=== PATIENT | female | born 1960 | race Caucasian/White ===

== ENCOUNTER 2020-06-02 15:26 | Emergency (ER) | payer BC, SELFPAY ==
[2020-06-02 15:27] VITALS: BP 149/80; PULSE 76; RESP 18; TEMP 36; O2SAT 98; BMI 23.9
--- NOTE | 2020-06-02 15:49 | ED.VIS.GEN ---
History of Present Illness Chief Complaint: Eye Problem Informant: Patient Onset: Today Current Severity: Mild Maximum Severity: Mild Narrative: Patient presents with burning sensation to the left eye. Yesterday she soaked diluted bleach in her contact lens cases to clean them. Last evening when she put her contacts in them she forgot to remove the solution. Her contacts soaked in a dilute bleach solution all night. When she got this morning she put her right contact in and had some slight burning. She took it out and cleaned it well, was able to put it back in her eye without difficulty. The left contact she has cleaned multiple times today but continues to have burning in her left eye. She was seen at urgent care. They applied tetracaine to her eye which did help relieve her pain but advised her to come here for further evaluation. - Past Medical History (1) High cholesterol Status: Chronic (2) Hypothyroid Status: Chronic Past Medical History - Allergies and Home Meds Allergies/Adverse Reactions: Allergies No Known Allergies Allergy (Verified 06/02/20 15:30) Prior records reviewed: Yes Smoking Status: Never smoker Review of Systems General: Denies: Chills, Fever Eyes: Reports: - - Burning sensation left eye ENT: Denies: Bilateral ear pain, Rhinorrhea Cardiovascular: Denies: Chest pain Respiratory: Denies: Dyspnea, Cough Gastrointestinal: Denies: Abdominal pain, Nausea, Vomiting, Diarrhea Genitourinary: Denies: Dysuria Musculoskeletal: Denies: Extremity Pain Hematologic: Denies: Easy bruising, Easy bleeding Allergy: Denies: Uticaria Physical Exam Vital Signs/Narrative: Vital Signs Temp Pulse Resp BP Pulse Ox 06/02/20 15:27 96.8 F L 76 18 149/80 H 98 Inital Vital Signs reviewed: Yes General: Well nourished, Well developed Head: Normocephalic Eyes: Perrl, EOMI, - - Mild conjunctival injection left eye Neck: Supple Cardiovascular: Regular rate, Regular rhythm Respiratory: No distress Extremities: Nontender Skin: Normal color Neurological: Alert, Oriented x3 Psychological: Normal affect Diagnostic/Tx/Re-eval - Medical Decision Making Tetracaine drops were applied to the left eye. Eye-Stream solution was used to irrigate the eye. Following this fluorescein was applied to the left eye. She has a very mild diffuse uptake. I will give the patient erythromycin eyedrops. If she continues to have pain early next week she will follow-up with her eye doctor. She was advised not to wear contacts until the surface of her eye has completely healed. ED Disposition - Plan for ED Patient: Disposition: Home or Assisted Living Diagnosis: Corneal abrasion Instructions: ED Corneal Injury, Contact Lens Additional Instructions: Apply 2 drops Erythromycin to affected eye 3 times daily until pain resolved x 24 hours.
[2020-06-02] MEDS: Tetracaine 0.5% Ophthalmic Bottle 1 DRP LEFT EYE (15:52)
[2020-06-02] MEDS: Sodium/Calcium/Mag/Potassium 15 ML Bottle LEFT EYE (15:53)
[2020-06-02] MEDS: Erythromycin Base 1 OPTH.TUBE 1 APPLIC LEFT EYE (16:07)
[2020-06-02] MEDS: Fluorescein 1 MG STRIP 1 STRIP LEFT EYE (16:07)
== END 2020-06-02 16:20 | disposition home or self-care (01) ==
LOC: ED 16:06
PROVIDERS: Emergency Provider Emergency Medicine; PCP Family Medicine
DX: S05.02XA Injury of conjunctiva and corneal abrasion without foreign body, left eye, initial encounter (principal); E03.9 Hypothyroidism, unspecified; Z79.899 Other long term (current) drug therapy; X58.XXXA Exposure to other specified factors, initial encounter; Y93.89 Activity, other specified; Y92.89 Other specified places as the place of occurrence of the external cause; Y99.8 Other external cause status
CPT/HCPCS: 99282

== ENCOUNTER → 2022-07-24 | Outpatient (CLI) | payer BC, SELFPAY ==
--- NOTE | 2022-07-24 08:54 | EKG12_ITS ---
Test Reason : PRE OP Blood Pressure : / mmHG Vent. Rate : 060 BPM Atrial Rate : 060 BPM P-R Int : 170 ms QRS Dur : 062 ms QT Int : 396 ms P-R-T Axes : 070 040 078 degrees QTc Int : 396 ms Normal sinus rhythm Nonspecific ST and T wave abnormality Abnormal ECG Confirmed by MARTÍN LEDEZMA, VINICIUS ([id number]), society editor SHANE PACHECO ([id number]) on 07/28/2022 2:21:15 PM Referred By: Abhijit Akhtar Confirmed By:EARL RESENDIZ MD
[2022-07-24 09:36] LABS: Absolute Lymphocyte Count 2.73 X10^3/uL (0.83-4.51); Absolute Neutrophil Count 4.1 X10^3/uL (2.0-7.7); Basophil# 0.08 X10^3/uL; Eosinophil# 0.24 X10^3/uL; Eosinophils% 3.1 % (0-5); Hematocrit 40.3 % (37-47); Hemoglobin 13.5 g/dL (12.0-15.0); Lymphocyte # 2.73 X10^3/ul (0.83-4.51); Lymphocyte % 35.4 % (19-41); Mean Corp Hgb Conc 33.5 g/dL (32-36); Mean Corpuscular Hgb 30.1 pg (27.0-32.0); Mean Platelet Vol. 10.1 fl (6.2-12.0); Monocyte# 0.55 X10^3/uL; Monocyte% 7.1 % (0-10); NRBC Flagged by Analyzer 0 % (0-5); Neutrophil # 4.09 X10^3/uL (2.7-7.7); Neutrophil % 53.1 % (47-70); Platelet Count 277 K/mm3 (150-450); RBC Distribution Width CV 12.6 % (11.6-14.6); RBC Distribution Width SD 41.1 fl (35.1-43.9); Red Blood Count 4.48 M/mm3 (4.2-5.4); White Blood Count 7.7 K/mm3 (4.4-11.0)
[2022-07-24 10:02] LABS: Albumin, Serum 3.9 g/dL (3.2-5.0); Anion Gap 10 (5-15); BUN 15 mg/dL (7-18); Calcium,Total 9.6 mg/dL (8.5-10.1); Chloride 96 mmol/L (98-107); Creatinine, Serum 0.68 mg/dL (0.55-1.02); EST Glomerular Filtration Rate 92 mL/min (>60); Est Glom Filt Rate - Afr Amer 112 mL/min (>60); Glucose 93 mg/dL (74-106); Sodium Level 132 mmol/L (136-145)
== END | disposition home or self-care (01) ==
PROVIDERS: PCP Family Medicine; Referring Provider Specialist; Visit Provider Specialist
DX: Z01.818 Encounter for other preprocedural examination (principal); M16.12 Unilateral primary osteoarthritis, left hip; Z01.810 Encounter for preprocedural cardiovascular examination
CPT/HCPCS: 36415; 80048; 82040; 85025; 93005

== ENCOUNTER 2023-12-08 15:27 | Emergency (ER) | payer MEDICARE, OTHER, SELFPAY ==
[2023-12-08 15:28] VITALS: BP 167/86; PULSE 66; RESP 20; TEMP 36; O2SAT 96; BMI 23.6
--- NOTE | 2023-12-08 16:30 | EDS_ITS ---
HPI History of Present Illness Chief Complaint: Palpitations Informant: patient Onset/Context/Timing Onset: Month(s) (1) Context: Sudden Onset Timing: Intermittent Quality: Skipping Location: Chest Worsened by: Sitting and eating Relieved by: Exercise and movement Narrative Narrative: Patient presents with palpitations that have been intermittent over the last month. Patient states she feels her heart skipping. Patient states it usually comes on in the afternoon and last most of the evening. Patient states it is worse with sitting and with eating. Patient states it is better when she is up and active and moving. Patient denies any chest pain. Patient denies any shortness of breath or cough. Patient denies any nausea or vomiting. Patient denies any recent cough or cold medicine use. Patient states she does drink 2 to 3 cups of coffee per day but has decreased this over the past week. Patient denies any fevers or chills. [facility] Medical History (Updated 12/08/23 @ 19:[address] Oniel Lopez, DO) High cholesterol Hypothyroid Home Medications ?Medication ?Instructions ?Recorded ?Last Taken ?Type levothyroxine 125 mcg tablet 125 mcg PO DAILY 06/02/20 Unknown History propranolol 60 mg capsule,24 60 mg PO DAILY 06/02/20 Unknown History hr,extended release Allergy/AdvReac Type Severity Reaction Status Date / Time No Known Allergies Allergy Verified 06/02/20 15:30 Surgical History Hx of eye surgery Hx of thyroidectomy History of total hip replacement Social History Smoking Status: Never smoker ROS ROS ED Constitutional Constitutional ED: Denies chills or fever(s) Eyes Eyes: Denies blurry vision or change in vision ENT ENT ED: Denies rhinorrhea or sore throat Cardiovascular Cardiovascular: Reports palpitations; Denies chest pain Respiratory/Chest Respiratory/Chest: Denies cough or dyspnea Gastrointestinal Gastrointestinal: Denies nausea or vomiting Genitourinary Genitourinary ED: Denies dysuria or hematuria Musculoskeletal Musculoskeletal: Denies back pain or neck pain Integumentary Denies abscess or rash Neurologic Neurologic: Denies headache(s) or weakness Allergic/Immunologic Allergic/Immunologic ED: Denies mouth swelling or urticaria EXAM Physical Exam Const Vital Signs: 12/08/23 15:28 12/08/23 17:23 12/08/23 17:23 Temperature 96.8 F L Temperature Source Temporal Pulse Rate 66 Respiratory Rate 20 H Respiratory Effort Normal Blood Pressure 167/86 H Blood Pressure Mean 113 Pulse Ox 96 Oxygen Delivery Method Room Air Room Air 12/08/23 17:27 12/08/23 19:00 12/08/23 19:22 Temperature 97.9 F Temperature Source Pulse Rate 76 65 63 Respiratory Rate 21 H 21 H 16 Respiratory Effort Blood Pressure 110/66 112/76 112/76 Blood Pressure Mean 80 88 88 Pulse Ox 97 97 97 Oxygen Delivery Method Room Air Room Air Positive well nourished and well developed General Appearance ED: well developed and NAD HEENT Reports moist mucous membranes Neck supple and no JVD Resp normal respiratory effort and clear to auscultation bilaterally Cardio regular rate and regular rhythm Rhythm: abnormal rhythm ectopic beats GI non-tender and non-distended Palpation: soft Extremity normal to inspection General Extremety ED: Negative for edema or tenderness General Extremity: Negative for edema Neuro oriented x3, CN's II-XII intact bilaterally and no sensory deficits noted Sensorium / Orientation: alert Motor Exam: strength 5/5 throughout Psych mental status grossly normal MDM MDM MDM Narrative Medical decision making narrative: Differential diagnosis includes cardiac dysrhythmia, cardiac ischemia, electrolyte abnormality, hypomagnesemia, and anxiety. EKG will be obtained to assess for cardiac dysrhythmia and cardiac ischemia. Chest x-ray will be obtained to assess for pneumothorax and widened mediastinum. CBC will be obtained to assess for leukocytosis and anemia. Basic metabolic profile will be obtained to assess for electrolyte abnormality and renal function. High- sensitivity troponin will be obtained to assess for cardiac ischemia. Magnesium will be obtained to assess for hypomagnesemia. Lab Data Attestation: I reviewed the patient's lab results. Lab results narrative: CBC was reviewed and was within normal limits. Basic metabolic profile was reviewed and was within normal limits. Magnesium was reviewed and was normal. TSH was reviewed and was normal. High-sensitivity troponin was reviewed and was normal. Labs: Laboratory Results - last 24 hr 12/08/23 16:10 WBC 7.5 RBC 4.29 Hgb 12.8 Hct 38.0 MCV 88.6 MCH 29.8 MCHC 33.7 RDW Std Deviation 41.1 RDW Coeff of [place] 12.5 Plt Count 264 MPV 10.5 Immature Gran % (Auto) 0.300 Neut % (Auto) 57.4 Lymph % (Auto) 32.2 Shack[place] % (Auto) 6.7 Eos % (Auto) 2.7 Baso % (Auto) 0.7 Absolute Neuts (auto) 4.3 Absolute Lymphs (auto) 2.41 Nucleated RBC % 0 Sodium 134 L Potassium 3.7 Chloride 101 Carbon Dioxide 25.0 Anion Gap 8 BUN 14 Creatinine 0.78 Estim Creat Clear Calc 65.63 Est GFR (MDRD) Af Amer 95 Est GFR (MDRD) Non-Af 79 BUN/Creatinine Ratio 17.9 Glucose 114 H Calcium 9.1 Magnesium 1.8 Troponin I High Sens 5 TSH 0.889 Radiography Chest X-Ray - ED: 2 View, Read by ED Physician, Read by Radiologist and No Acute Disease Diagnostic Testing: Clinical Impression(s) from Imaging Studies Chest X-Ray 12/08/23 17:22 IMPRESSION: No acute cardiopulmonary pathology. Electronically Signed: Stanley Arriaga MD at 18:25 EDT , PA and lateral chest x-ray was obtained. There are 2 views. On my independent interpretation, lung sampson are clear. There is normal cardiac silhouette. Bony thorax is normal. There is no acute process noted. Radiologist also interpreted the x-ray and agrees. EKG Initial EKG: Attestation: I personally reviewed and interpreted this EKG as follows: Interpretation: Sinus Rhythm (With occasional PVCs with a rate 74) Comments: EKG was obtained. On my independent interpretation, it showed a normal sinus rhythm with occasional PVC with a rate of 74. DE interval, QRS interval, and QTc intervals were all normal. Thomas was normal. There are no acute ST or T wave changes. Prior EKG tracings: available for review Prior: Unchanged (07/24/2022) Treatment and Re-Evaluation :: Patient is feeling better on reevaluation. Patient was advised of her findings. Patient was advised that she is having PVCs which are causing her symptoms. Patient was instructed to follow-up with her primary care physician in 5 to 7 days. Patient was advised she may possibly need to see a party plan selling distributor for further evaluation as well. Patient was instructed to return if worse in any way. Patient understood and was agreeable with the plan. All questions were answered. Discharge Plan Triage Chief Complaint: Palpitations ED Provider: Oniel Lopez Dx/Rx/DC Orders Clinical Impression: Heart palpitations, Symptomatic PVCs Instructions: ED Palpitations Prescriptions: No Action propranolol 60 MG capsule 60 mg PO DAILY levothyroxine 125 MCG tablet 125 mcg PO DAILY Primary Care Provider: Santi Quintanilla Referrals: Santi Quintanilla MD [Primary Care Provider] - Print Language: Sudanese Disposition Disposition: Home, Self Care
[2023-12-08] MEDS: Aspirin 81 MG TAB.CHEW 324 MG PO (17:00)
[2023-12-08 17:12] LABS: Absolute Lymphocyte Count 2.41 X10^3/uL (0.83-4.51); Absolute Neutrophil Count 4.3 X10^3/uL (2.0-7.7); Basophil# 0.05 X10^3/uL; Basophil% 0.7 % (0-1); Eosinophils% 2.7 % (0-5); Hemoglobin 12.8 g/dL (12.0-15.0); Lymphocyte # 2.41 X10^3/ul (0.83-4.51); Lymphocyte % 32.2 % (19-41); Mean Corp Hgb Conc 33.7 g/dL (32-36); Mean Corpuscular Hgb 29.8 pg (27.0-32.0); Mean Corpuscular Volume 88.6 fL (81-99); Mean Platelet Vol. 10.5 fl (6.2-12.0); Monocyte% 6.7 % (0-10); NRBC Flagged by Analyzer 0 % (0-5); Neutrophil % 57.4 % (47-70); Platelet Count 264 K/mm3 (150-450); RBC Distribution Width CV 12.5 % (11.6-14.6); RBC Distribution Width SD 41.1 fl (35.1-43.9); Red Blood Count 4.29 M/mm3 (4.2-5.4); White Blood Count 7.5 K/mm3 (4.4-11.0)
--- NOTE | 2023-12-08 17:22 | RAD_ITS ---
STUDY: X-RAY CHEST REASON FOR EXAM: Female, 63 years old. chest pain TECHNIQUE: PA and lateral COMPARISON: January 24, 2014 FINDINGS: The lungs are clear and expanded. There is no demonstrated pleural abnormality. Normal size heart. Normal mediastinum and melody. Normal visualized pulmonary arteries. Normal visualized aortic arch and descending thoracic aorta. Dorsal spine demonstrates mild degenerative change. Normal visualized ribs, clavicles, and shoulders. Post surgical changes of the neck. There is no demonstrated abnormality of the visualized soft tissue structures of the upper abdomen. RAD/Chest PA and Lateral IMPRESSION: No acute cardiopulmonary pathology. Electronically Signed: Stanley Arriaga MD at 18:25 EDT ,
[2023-12-08 17:27] VITALS: BP 110/66; PULSE 76; RESP 21; O2SAT 97
[2023-12-08 17:34] LABS: Anion Gap 8 (5-15); BUN 14 mg/dL (7-18); BUN/Creat Ratio 17.9 RATIO (10-20); Calcium,Total 9.1 mg/dL (8.5-10.1); Chloride 101 mmol/L (98-107); Creatinine, Serum 0.78 mg/dL (0.55-1.02); EST Glomerular Filtration Rate 79 mL/min (>60); Est Glom Filt Rate - Afr Amer 95 mL/min (>60); Estimated Creatinine Clearance 65.63 ml/min; Glucose 114 mg/dL (74-106); Magnesium 1.8 mg/dL (1.6-2.6); Potassium 3.7 mmol/L (3.5-5.1); Sodium Level 134 mmol/L (136-145); Thyroid Stim Hormone (TSH) 0.889 uIU/mL (0.358-3.740); Troponin-I HS 5 pg/mL (3.0-54.0)
[2023-12-08 19:00] VITALS: BP 112/76; PULSE 65; RESP 21; O2SAT 97
[2023-12-08 19:22] VITALS: BP 112/76; PULSE 63; RESP 16; TEMP 36.6; O2SAT 97
== END 2023-12-08 19:41 | disposition home or self-care (01) ==
PROVIDERS: Emergency Provider Emergency Medicine; PCP Family Medicine; Visit Provider Emergency Medicine
DX: I49.3 Ventricular premature depolarization (principal); R00.2 Palpitations; E03.9 Hypothyroidism, unspecified; Z79.890 Hormone replacement therapy; Z90.89 Acquired absence of other organs; Z96.643 Presence of artificial hip joint, bilateral
CPT/HCPCS: 71046; 80048; 83735; 84443; 84484; 85025; 93005; 99284; J7040; A4216